=== PATIENT | male | born 1955 | race Caucasian/White ===

== ENCOUNTER 2017-05-20 14:00 | Emergency (ER) | payer OTHER ==
--- NOTE | 2017-05-20 15:56 | EDPHY ---
H & P Time Seen by Provider: 05/20/17 15:55 HPI/ROS: Chief complaint. Right flank pain HPI. 61-year-old male presents with right flank pain that began about 3 weeks ago. It waxes and wanes. It is worse in the morning. No anterior abdominal pain, nausea vomiting, diarrhea, urinary symptoms. Occasional sweating. No fever. No chest discomfort or shortness of breath. Sometimes worse with movement. Penis and testicles are normal. No similar symptoms previously ROS Constitutional. no fever/chills, no weakness Eyes. no problems with vision ENT. no sore throat, no nasal drainage Cardiovascular. no chest pain Respiratory. no shortness of breath, no cough Abdominal. Right flank pain . no problems urinating MS. no calf pain/swelling, no neck/back pain, no joint pain Skin. Occasional sweating Lymph. no swollen glands Neuro. no headache, no dizziness, no difficulty walking or with speech Past Medical/Surgical History: Denies past medical history other than some intermittent low back pain Social History: Single, nonsmoker, no alcohol Smoking Status: Never smoked Physical Exam: General Appearance: Alert well-developed male mild distress vital signs are stable Eyes: Pupils equal and round no pallor or injection. ENT, Mouth: Mucous membranes are moist. Respiratory: There are no retractions, lungs are clear to auscultation. Cardiovascular: Regular rate and rhythm. Gastrointestinal: Abdomen is soft and nontender, no masses, bowel sounds normal. Patient shows me right flank pain but it is not worse with palpation Neurological: Awake and alert, sensory and motor exams grossly normal. Skin: Warm and dry, no rashes. Musculoskeletal: Neck is supple nontender. Extremities symmetrical, full range of motion. Psychiatric: Patient is oriented X 3, there is no agitation. Constitutional: Initial Vital Signs Temperature (C) 36.6 C 05/20/17 14:14 Heart Rate 77 05/20/17 14:14 Respiratory Rate 18 05/20/17 14:14 Blood Pressure 118/76 05/20/17 14:14 O2 Sat (%) 94 05/20/17 14:14 O2 Delivery Mode Room Air Allergies/Adverse Reactions: No Known Allergies Allergy (Unverified 05/20/17 14:14) Home Medications: Medication Instructions Recorded NK [No Known Home Meds] 05/20/17 Medical Decision Making - Diagnostics Imaging Results: CT abdomen pelvis reviewed by me and discussed with Dr. Melgoza shows no evidence for kidney stone. Has slightly larger than normal appendix up to 9 mm but no surrounding inflammation. There are subtle lucencies in the lumbar spine and pelvis that could be consistent with metastatic disease multiple myeloma. Bone scan as an outpatient is recommended Procedures: IV normal saline ED Course/Re-evaluation: Re-evaluation at 5:45 p.m.--patient is stable. He and I discussed imaging and lab results. We discussed treatment plan including criteria for return and importance of follow-up and further evaluation. He expresses understanding and agreement We specifically discussed the subtle lucencies in the lumbar spine and pelvis that could be consistent with metastatic disease or multiple myeloma and recommending bone scan. He understands and agrees. Patient lives in [place] and is visiting [place]. We will give the patient his labs CT scan on a disc and copies of his labs to have him follow up with his physician in [place] Differential Diagnosis: I considered kidney stone, lumbar radiculopathy, muscle strain, urinary tract infection - Data Points Laboratory Results: Laboratory Results 05/20/17 16:30 05/20/17 16:30 05/20/17 05/20/17 05/20/17 16:30 16:30 14:57 WBC 7.61 10^3/uL 10^3/uL (3.80-9.50) RBC 5.59 10^6/uL 10^6/uL (4.40-6.38) Hgb 16.5 g/dL g/dL (13.7-17.5) Hct 48.4 % % (40.0-51.0) MCV 86.6 fL fL (81.5-99.8) MCH 29.5 pg pg (27.9-34.1) MCHC 34.1 g/dL g/dL (32.4-36.7) RDW 13.5 % % (11.5-15.2) Plt Count 264 10^3/uL 10^3/uL (150-400) MPV 9.6 fL fL (8.7-11.7) Neut % (Auto) 51.5 % % (39.3-74.2) Lymph % (Auto) 38.5 % % (15.0-45.0) [place] % (Auto) 7.4 % % (4.5-13.0) Eos % (Auto) 1.6 % % (0.6-7.6) Baso % (Auto) 0.7 % % (0.3-1.7) Nucleat RBC Rel Count 0.0 % % (0.0-0.2) Absolute Neuts (auto) 3.93 10^3/uL 10^3/uL (1.70-6.50) Absolute Lymphs (auto) 2.93 10^3/uL 10^3/uL (1.00-3.00) Absolute Monos (auto) 0.56 10^3/uL 10^3/uL (0.30-0.80) Absolute Eos (auto) 0.12 10^3/uL 10^3/uL (0.03-0.40) Absolute Basos (auto) 0.05 10^3/uL 10^3/uL (0.02-0.10) Absolute Nucleated RBC 0.00 10^3/uL 10^3/uL (0-0.01) Immature Gran % 0.3 % % (0.0-1.1) Immature Gran # 0.02 10^3/uL 10^3/uL (0.00-0.10) Sodium 139 mEq/L mEq/L (134-144) Potassium 4.4 mEq/L mEq/L (3.5-5.2) Chloride 104 mEq/L mEq/L (97-110) Carbon Dioxide 22 mEq/l mEq/l (22-31) Anion Gap 13 mEq/L mEq/L (8-16) BUN 21 mg/dL mg/dL (7-23) Creatinine 0.9 mg/dL mg/dL (0.7-1.3) Estimated GFR > 60 Glucose 81 mg/dL mg/dL (70-100) Calcium 9.5 mg/dL mg/dL (8.5-10.4) Urine Color YELLOW Urine Appearance CLEAR Urine pH 6.0 (5.0-7.5) Ur Specific [place] 1.021 (1.002-1.030) Urine Protein NEGATIVE (NEGATIVE) Urine Ketones NEGATIVE (NEGATIVE) Urine Blood NEGATIVE (NEGATIVE) Urine Nitrate NEGATIVE (NEGATIVE) Urine Bilirubin NEGATIVE (NEGATIVE) Urine Urobilinogen NEGATIVE EU EU (0.2-1.0) Ur Leukocyte Esterase NEGATIVE (NEGATIVE) Urine RBC 1-3 /hpf /hpf (0-3) Urine WBC 1-3 /hpf /hpf (0-3) Ur Epithelial Cells NONE SEEN /lpf /lpf (NONE-1+) Hyaline Casts 1-5 /lpf /lpf (0-1) Urine Mucus TRACE /lpf /lpf (NONE-1+) Urine Glucose NEGATIVE (NEGATIVE) Medications Given: Discontinued Medications Sodium Chloride (Ns) 1,000 mls @ 0 mls/hr IV EDNOW ONE; Wide Open PRN Reason: Protocol Stop: 05/20/17 16:08 Last Admin: 05/20/17 16:35 Dose: 1,000 mls Departure - Departure Disposition: Home, Routine, Self-Care Clinical Impression: Flank pain Condition: Good Instructions: Flank Pain (ED) Additional Instructions: Tylenol and ibuprofen for discomfort. Increase fluids. There is concern for subtle lucencies in the lumbar spine and pelvis seen on CT today. This could be consistent with metastatic disease or multiple myeloma. A bone scan is recommended for further evaluation. Please follow-up with your regular physician upon return to [place] to have a bone scan performed Referrals: UNKNOWN,CODI [Other] - As per Instructions
[2017-05-20] MEDS ORDERED: NS 1,000 ML IV ONE (16:07)
[2017-05-20 16:21] LABS: COLOR YELLOW; LEUKOCYTE ESTERASE,URINE NEGATIVE (NEGATIVE); NITRITE,URINE NEGATIVE (NEGATIVE)
[2017-05-20 16:27] LABS: MUCUS TRACE /lpf (NONE-1+)
[2017-05-20 17:07] LABS: % IMMATURE GRANULYOCYTES 0.3 % (0.0-1.1); ABSOLUTE IMMATURE GRANULOCYTES 0.02 10^3/uL (0.00-0.10); ADD DIFF? NO; ADD MORPH? NO; ADD SCAN? NO; ATYPICAL LYMPHOCYTE FLAG 0 (0-99); FRAGMENT RBC FLAG 0 (0-99); HEMATOCRIT 48.4 % (40.0-51.0); HEMOGLOBIN 16.5 g/dL (13.7-17.5); LEFT SHIFT FLG 0 (0-99); LIPEMIA HEMOLYSIS FLAG 90 (0-99); MEAN CELL HEMOGLOBIN 29.5 pg (27.9-34.1); MEAN CELL HEMOGLOBIN CONCENTR. 34.1 g/dL (32.4-36.7); MEAN CELL VOLUME 86.6 fL (81.5-99.8); MEAN PLATELET VOLUME 9.6 fL (8.7-11.7); PLATELET CLUMPS FLAG 0 (0-99); PLATELET COUNT 264 10^3/uL (150-400); RED BLOOD CELL COUNT 5.59 10^6/uL (4.40-6.38); RED CELL DISTRIBUTION WIDTH 13.5 % (11.5-15.2)
[2017-05-20 17:19] LABS: ANION GAP 13 mEq/L (8-16); CALCIUM 9.5 mg/dL (8.5-10.4); CARBON DIOXIDE 22 mEq/l (22-31); CHLORIDE 104 mEq/L (97-110); CREATININE 0.9 mg/dL (0.7-1.3); GLOMERULAR FILTRATION RATE > 60; GLUCOSE 81 mg/dL (70-100); POTASSIUM 4.4 mEq/L (3.5-5.2); SODIUM 139 mEq/L (134-144)
[2017-05-20 18:18] VITALS: BP 124/82; PULSE 73; RESP 16; TEMP 98.4; O2SAT 92
== END 2017-05-20 18:17 | disposition home or self-care (01) ==
DX: R10.9 Unspecified abdominal pain (principal); E86.9 Volume depletion, unspecified